=== PATIENT | male | born 1985 | race Caucasian/White ===

== ENCOUNTER 2018-02-09 21:27 | Emergency (ER) | payer SELFPAY ==
[2018-02-09 21:40] VITALS: BP 118/73
[2018-02-09] MEDS ORDERED: Sodium Chloride 0.9% 10 ML Syringe FLUSH PRN (21:52)
[2018-02-09] MEDS ORDERED: Aspirin 81 MG Tab.Chew PO ONE (21:52)
--- NOTE | 2018-02-09 22:35 | EDM.PDOC ---
ED HPI GENERAL MEDICAL PROBLEM - General Chief Complaint: Chest Pain Stated Complaint: SHARP PAINS IN CHEST AND LEFT ARM NUMB Time Seen by Provider: 02/09/18 21:37 Source of Information: Reports: Patient History Limitations: Reports: No Limitations - History of Present Illness INITIAL COMMENTS - FREE TEXT/NARRATIVE: The patient presents with chest pain. This started at about 8pm. He was cooking dinner. It lasted about 1 minute and it got better and now he has some numbness to his left upper arm. He was also nauseated and sweaty. He has no heart problems He chews but he does not smoke. He has no high blood pressure, diabetes or hypercholesterolemia. His father had his first heart attack at age 40. He of heart issues. Onset: Sudden Duration: Hour(s): (8pm) Location: Reports: Chest, Upper Extremity, Left Quality: Reports: Sharp Severity: Moderate Improves with: Reports: None Worsens with: Reports: None Associated Symptoms: Reports: No Other Symptoms Left Chest Pain Score (Numeric/FACES): 5 - Related Data Allergies Allergy/AdvReac Type Severity Reaction Status Date / Time Penicillins Allergy Cannot Verified 07/01/16 03:49 CDT Remember Home Meds: Home Meds . [No Known Home Meds] 07/01/16 [History] Past Medical History - Infectious Disease History Infectious Disease History: Reports: Chicken Pox - Past Surgical History GI Surgical History: Reports: Appendectomy Social & Family History - Family History Cardiac: Reports: PR - Tobacco Use Smoking Status *Q: Current Every Day Smoker Years of Tobacco use: 5 Packs/Tins Daily: 0.4 - Caffeine Use Caffeine Use: Reports: Coffee, Energy Drinks - Recreational Drug Use Recreational Drug Use: No ED ROS GENERAL - Review of Systems Review Of Systems: See Below Constitutional: Reports: No Symptoms HEENT: Reports: No Symptoms Respiratory: Reports: No Symptoms Cardiovascular: Reports: No Symptoms Endocrine: Reports: No Symptoms GI/Abdominal: Reports: No Symptoms : Reports: No Symptoms Musculoskeletal: Reports: Arm Pain (numbness) ED EXAM, GENERAL - Physical Exam Exam: See Below Exam Limited By: No Limitations General Appearance: Alert, No Apparent Distress Ears: Normal External Exam Nose: Normal Inspection Head: Atraumatic, Normocephalic Neck: Normal Inspection Respiratory/Chest: No Respiratory Distress, Lungs Clear, Normal Breath Sounds Cardiovascular: Regular Rate, Rhythm, No Edema, No Murmur GI/Abdominal: Soft, Non-Tender, No Organomegaly, No Mass Back Exam: Normal Inspection EKG INTERPRETATION EKG Date: 02/09/18 Time: 21:34 Rhythm: NSR Rate (Beats/Min): 73 [place]: Normal P-Wave: Present QRS: Normal ST-T: Normal QT: Normal Course - Vital Signs Last Recorded V/S: Last Vital Signs Temp 98.6 F 02/09/18 21:37 Pulse 75 02/09/18 21:37 Resp 14 02/09/18 21:37 BP 118/73 02/09/18 21:37 Pulse Ox 100 02/09/18 21:37 - Orders/Labs/Meds Orders: Active Orders 24 hr Category Date Time Status Cardiac Monitoring [RC] . DIRECTED Care 02/09/18 21:52 Active EKG Documentation Completion [RC] ASDIRECTED Care 02/09/18 21:32 Active Peripheral IV Care [RC] . DIRECTED Care 02/09/18 21:55 Active Chest 1V Frontal [CR] Stat Exams 02/09/18 21:53 Taken Sodium Chloride 0.9% [Saline Flush] Med 02/09/18 21:52 Active 10 ml FLUSH ASDIRECTED PRN Peripheral IV Insertion Adult [OM.PC] Stat Oth 02/09/18 21:52 Ordered EKG 12 Lead [EK] Stat Ther 02/09/18 21:31 Ordered Medication Orders Sodium Chloride (Saline Flush) 10 ml FLUSH ASDIRECTED PRN PRN Reason: Keep Vein Open Last Admin: 02/09/18 22:11 Dose: 10 ml Labs: Laboratory Tests 02/09/18 02/09/18 02/09/18 Range/Units 22:10 22:10 22:10 WBC 6.32 (4.23-9.07) K/mm3 RBC 4.72 (4.63-6.08) M/mm3 Hgb 14.3 (13.7-17.5) gm/L Hct 41.7 (40.1-51.0) % MCV 88.3 (79.0-92.2) fl MCH 30.3 (25.7-32.2) pg MCHC 34.3 (32.2-35.5) g/dl RDW Std Deviation 40.6 (35.1-43.9) fL Plt Count 268 (163-337) K/mm3 MPV 9.3 L (9.4-12.3) fl Neut % (Auto) 45.0 (34.0-67.9) % Lymph % (Auto) 37.8 (21.8-53.1) % [place] % (Auto) 15.0 H (5.3-12.2) % Eos % (Auto) 1.4 (0.8-7.0) Baso % (Auto) 0.6 (0.1-1.2) % Neut # (Auto) 2.84 (1.78-5.38) K/mm3 Lymph # (Auto) 2.39 (1.32-3.57) K/mm3 [place] # (Auto) 0.95 H (0.30-0.82) K/mm3 Eos # (Auto) 0.09 (0.04-0.54) K/mm3 Baso # (Auto) 0.04 (0.01-0.08) K/mm3 D-Dimer, Quantitative < 0.19 L (0.19-0.50) mg/L Sodium 143 (136-145) mEq/L Potassium 3.2 L (3.5-5.1) mEq/L Chloride 104 (98-107) mEq/L Carbon Dioxide 25 (21-32) mEq/L Anion Gap 17.2 H (5-15) BUN 20 H (7-18) mg/dL Creatinine 1.2 (0.7-1.3) mg/dL Est Cr Clr Drug Dosing 88.70 mL/min Estimated GFR (MDRD) > 60 (>60) mL/min BUN/Creatinine Ratio 16.7 (14-18) Glucose 87 (74-106) mg/dL Calcium 8.8 (8.5-10.1) mg/dL Total Bilirubin 0.4 (0.2-1.0) mg/dL AST 20 (15-37) U/L ALT 20 (16-63) U/L Alkaline Phosphatase 51 (46-116) U/L Troponin I < 0.017 (0.00-0.056) ng/mL Total Protein 7.5 (6.4-8.2) g/dl Albumin 4.2 (3.4-5.0) g/dl Globulin 3.3 gm/dL Albumin/Globulin Ratio 1.3 (1-2) Meds: Medications Generic Name Dose Route Start Last Admin Trade Name Freq PRN Reason Stop Dose Admin Sodium Chloride 10 ml 02/09/18 21:52 02/09/18 22:11 Saline Flush FLUSH 10 ml ASDIRECTED PRN Administration Keep Vein Open Discontinued Medications Generic Name Dose Route Start Last Admin Trade Name Freq PRN Reason Stop Dose Admin Aspirin 324 mg 02/09/18 21:52 02/09/18 22:10 Aspirin PO 02/09/18 21:53 324 mg ONETIME ONE Administration - Re-Assessments/Exams Free Text/Narrative Re-Assessment/Exam: 02/09/18 22:37 I ordered aspirin, EKG, CXR and labs. 02/09/18 23:22 His EKG shows a NSR with no acute changes. His CXR looks good. His CBC and CMP look good. His troponin is negative along with his D-dimer. I feel this is atypical chest pain. I will have him follow up with one of our providers and because of his bad family history he may be a candidate for more testing. Departure - Departure Time of Disposition: 23:25 Disposition: Home, Self-Care 01 Condition: Good Clinical Impression: Atypical chest pain Referrals: PCP,None [Primary Care Provider] - Marifer Sierra [Physician] - 2 Weeks Forms: ED Department Discharge Additional Instructions: Go home and rest tonight. Follow up with Dr Sierra in 2 weeks. Please return if you are worse. - My Orders Last 24 Hours: My Active Orders 02/09/18 21:31 EKG 12 Lead [EK] Stat 02/09/18 21:32 EKG Documentation Completion [RC] ASDIRECTED 02/09/18 21:52 Cardiac Monitoring [RC] . DIRECTED Sodium Chloride 0.9% [Saline Flush] 10 ml FLUSH ASDIRECTED PRN Peripheral IV Insertion Adult [OM.PC] Stat 02/09/18 21:53 Chest 1V Frontal [CR] Stat 02/09/18 21:55 Peripheral IV Care [RC] . DIRECTED - Assessment/Plan Last 24 Hours: My Active Orders 02/09/18 21:31 EKG 12 Lead [EK] Stat 02/09/18 21:32 EKG Documentation Completion [RC] ASDIRECTED 02/09/18 21:52 Cardiac Monitoring [RC] . DIRECTED Sodium Chloride 0.9% [Saline Flush] 10 ml FLUSH ASDIRECTED PRN Peripheral IV Insertion Adult [OM.PC] Stat 02/09/18 21:53 Chest 1V Frontal [CR] Stat 02/09/18 21:55 Peripheral IV Care [RC] . DIRECTED
--- NOTE | 2018-02-10 07:10 | CR ---
Chest: Portable view of the chest was obtained. Comparison: No prior chest x-ray. Heart size and mediastinum are normal. Lungs are clear with no acute parenchymal change. Minimal scoliosis is noted within the spine. Impression: 1. Nothing acute is identified on portable chest x-ray. Diagnostic code #1
== END 2018-02-09 23:30 | disposition home or self-care (01) ==
LOC: JD.ED 21:27
DX: R07.89 Other chest pain (principal); F17.210 Nicotine dependence, cigarettes, uncomplicated; Z88.0 Allergy status to penicillin
CPT/HCPCS: 36415; 71045; 80053; 84484; 85025; 85379; 93005; 99285; A9270; J7050